=== PATIENT | female | born 1970 | race Two or more races ===

== ENCOUNTER 2017-05-31 10:11 | Emergency (ER) | payer MEDICAID ==
[~2017-05-31] VITALS: Ht 162.6 cm; Wt 99.7 kg
[2017-05-31] MEDS ORDERED: SODIUM CHLORIDE FLUSH 10ML SYR IVF ONE (11:00)
[2017-05-31] MEDS ORDERED: MAALOX/HYOSCYAMINE/LIDOCAINE 45 ML BTL ONE (11:15)
[2017-05-31 11:22] LABS: HEMATOCRIT 51.1 % (34.6-47.8); WHITE BLOOD COUNT 6.3 x10^3/uL (3.4-10)
[2017-05-31 11:28] LABS: BLOOD UREA NITROGEN 13 mg/dL (7-18)
[2017-05-31] MEDS ORDERED: MAALOX/HYOSCYAMINE/LIDOCAINE 45 ML BTL PO ONE (11:30)
[2017-05-31] MEDS ORDERED: LOSA1TAB17 PO (11:31)
[2017-05-31] MEDS ORDERED: PHEN37.53 PO (11:31)
[2017-05-31 11:38] LABS: IS PT STATUS REG ER OR PRE ER? YES
[2017-05-31 12:40] VITALS: BP 132/86
== END 2017-05-31 13:05 | disposition home or self-care (01) ==
LOC: ED 12:28
DX: R07.2 Precordial pain (principal); I10 Essential (primary) hypertension
CPT/HCPCS: 36415; 71010; 80048; 82040; 84484; 85025; 85379; 93005; 99285

== ENCOUNTER 2017-08-25 10:59 | Emergency (ER) | payer MEDICAID ==
[~2017-08-25] VITALS: Ht 162.6 cm; Wt 100.2 kg
[~2017-08-25 10:59] MED LIST: LOSA1TAB22 PO; PHEN37.53 PO
[2017-08-25 11:02] VITALS: BP 154/95
== END 2017-08-25 11:53 | disposition home or self-care (01) ==
LOC: ED 11:40
DX: H66.91 Otitis media, unspecified, right ear (principal); H93.8X2 Other specified disorders of left ear; I10 Essential (primary) hypertension
CPT/HCPCS: 99283

== ENCOUNTER 2018-09-04 02:00 | Emergency (ER) | payer MEDICAID ==
[~2018-09-04] VITALS: Ht 162.6 cm; Wt 111.4 kg
--- NOTE | 2018-09-04 02:10 | NUR ---
EPIGASTRIC ABD PAIN X YESTERDAY MORNING. +DIARRHEA. DENIES N/V. LBM: TODAY
[2018-09-04] MEDS ORDERED: MAALOX/HYOSCYAMINE/LIDOCAINE 45 ML BTL PO ONE (02:30)
[2018-09-04] MEDS ORDERED: HYDROcodone/APAP 5/325 TABLET PO ONE (02:30)
[2018-09-04] MEDS ORDERED: ONDANSETRON ODT 4 MG PO ONE (02:30)
[2018-09-04] MEDS ORDERED: ONDANSETRON ODT 4 MG ONE (02:30)
[2018-09-04] MEDS ORDERED: MAALOX/HYOSCYAMINE/LIDOCAINE 45 ML BTL ONE (02:31)
[2018-09-04] MEDS ORDERED: HYDROcodone/APAP 5/325 TABLET ONE (02:31)
[2018-09-04 03:06] LABS: BASOPHILS # (AUTO) 0.05 x10^3/uL (0-0.1); BASOPHILS % (AUTO) 1 % (0-1); EOSINOPHILS # (AUTO) 0.07 x10^3/uL (0-0.4); EOSINOPHILS % (AUTO) 1 % (1-7); LYMPHOCYTES # (AUTO) 1.65 x10^3/uL (1-3.4); LYMPHOCYTES % (AUTO) 20 % (22-44); MD NO; MEAN CORPUSCULAR HEMOGLOBIN 31.2 pg (27.0-34.8); MEAN CORPUSCULAR HGB CONC 33.7 g/dL (32.4-35.8); MEAN CORPUSCULAR VOLUME 92.4 fL (80-100); MEAN PLATELET VOLUME 8.7 fL (7.4-10.4); MONOCYTES # (AUTO) 0.78 x10^3/uL (0.2-0.8); MONOCYTES % (AUTO) 9 % (2-9); NEUTROPHILS # (AUTO) 5.75 x10^3/uL (1.8-6.8); NEUTROPHILS % (AUTO) 69 % (42-75); PLATELET COUNT 306 x10^3/uL (130-400); RED BLOOD COUNT 4.48 x10^6/uL (3.82-5.3); RED CELL DISTRIBUTION WIDTH 14.1 % (9.6-15.2)
[2018-09-04 03:18] LABS: ALANINE AMINOTRANSFERASE 30 U/L (12-78); ALBUMIN 3.2 g/dL (3.4-5.0); ANION GAP 9 mmol/L (5-15); CALCIUM 8.1 mg/dL (8.5-10.1); CHLORIDE 108 mmol/L (98-107); CREATININE 0.66 mg/dL (0.55-1.02)
[2018-09-04 03:21] LABS: ALKALINE PHOSPHATASE 98 U/L (45-117); BILIRUBIN,TOTAL 0.5 mg/dL (0.2-1.0); TOTAL PROTEIN 7.3 g/dL (6.4-8.2)
[2018-09-04] MEDS ORDERED: FAMOTIDINE 20 MG TABLET PO ONE (03:30)
--- NOTE | 2018-09-04 03:30 | NUR ---
Sprite and water provided for PO challenge, patient states she is no longer in pain, denies nausea. at bedside, call j[facility]ston within reach.
[2018-09-04 03:42] VITALS: BP 128/80
[2018-09-04] MEDS ORDERED: FAMOTIDINE 20 MG TABLET ONE (03:43)
--- NOTE | 2018-09-04 04:06 | NUR ---
Discharge instructions discussed with patient and her significant other, verbalize understanding, questions answered. Prescriptions provided to patient with instruction for use, verbalizes understanding. Patient instructed not to drive home today, patient states she will not be driving. Patient ambulates with steady gait to discharge desk in no acute distress.
== END 2018-09-04 04:08 | disposition home or self-care (01) ==
LOC: ED 03:48
DX: K29.00 Acute gastritis without bleeding (principal); I10 Essential (primary) hypertension; Z90.710 Acquired absence of both cervix and uterus
CPT/HCPCS: 36415; 76700; 80053; 83690; 85025; 93005; 99284; Q0162